=== PATIENT | male | born 1955 | race African-American/Black ===

== ENCOUNTER 2023-10-19 04:28 | Day surgery (SDC) | payer OTHER ==
[2023-10-10 13:30] VITALS: BMI 31.0
[2023-10-19] MEDS ORDERED: ceFAZolin SODIUM 1 GM VIAL ONE ×2 (06:40→07:50)
[2023-10-19] MEDS ORDERED: BUPIVACAINE HCL/PF 0.5% (5MG/ML) 10 ML VIAL ONE (07:09)
[2023-10-19] MEDS ORDERED: LIDOCAINE HCL 1%, 10 MG/ML (20ML VIAL) ONE (07:17)
[2023-10-19] MEDS ORDERED: PROPOFOL 40 ML ONE (07:33)
[2023-10-19] MEDS ORDERED: MIDAZOLAM HCL 2 MG/2 ML SINGLE DOSE VIAL ONE (07:33)
[2023-10-19] MEDS ORDERED: LIDOCAINE HCL/PF 2% SDV 5ML VIAL ONE (07:34)
[2023-10-19] MEDS ORDERED: SUCCINYLCHOLINE CHLORIDE 200 MG/10 ML SYRINGE ONE (07:34)
[2023-10-19] MEDS ORDERED: FENTANYL CITRATE/PF 50 MCG/ML VIAL ONE (07:34)
[2023-10-19] MEDS ORDERED: LIDOCAINE 1%/EPI 1:100000 (20 ML MULTI DOSE VIAL) ONE (07:48)
[2023-10-19] MEDS ORDERED: BUPIVACAINE HCL/PF 0.25% (2.5MG/ML) 10 ML VIAL ONE (07:48)
[2023-10-19] MEDS ORDERED: ONDANSETRON 4 MG/2 ML VIAL ONE (07:51)
[2023-10-19] MEDS ORDERED: DEXAMETHASONE SOD PHOSPHATE 4 MG/1 ML VIAL ONE (07:51)
[2023-10-19] MEDS: LIDOCAINE 1%/EPI 1:100000 (20 ML MULTI DOSE VIAL) IJ ONE (07:57)
[2023-10-19] MEDS: BUPIVACAINE HCL/PF 0.25% (2.5MG/ML) 10 ML VIAL IJ ONE ×2 (07:57)
[2023-10-19] MEDS ORDERED: KETOROLAC TROMETHAMINE 30 MG/1 ML VIAL ONE (08:13)
[2023-10-19] MEDS ORDERED: ONDANSETRON 4 MG/2 ML VIAL IVPUSH PRN (08:45)
[2023-10-19] MEDS ORDERED: ACETAMINOPHEN 1000 MG/100 ML BAG IVPB ONE (08:45)
[2023-10-19] MEDS: LACTATED RINGERS SOLUTION 1,000 ML IV SCH (10:28)
[2023-10-19 10:53] VITALS: RESP 20
[2023-10-19 11:53] VITALS: BP 133/80; PULSE 75; TEMP 97.3
== END 2023-10-19 11:53 | disposition home or self-care (01) ==
LOC: JASU-SURG 04:28
PROVIDERS: ATTEND Surgery
PROC: 0JBL0ZZ Excision of Right Upper Leg Subcutaneous Tissue and Fascia, Open Approach (ICD-10-PCS; principal; 2023-10-19 07:30)
DX: D17.23 Benign lipomatous neoplasm of skin and subcutaneous tissue of right leg (principal)
CPT/HCPCS: 86850; 86900; 86901; 88304-TC; 94760